=== PATIENT | male | born 1995 | race Two or more races ===

== ENCOUNTER 2021-02-14 17:56 | Emergency (ER) | payer SELFPAY ==
[~2021-02-14] VITALS: Ht 172.7 cm; Wt 86.2 kg
[2021-02-14 20:51] VITALS: BP 145/115
[2021-02-14] MEDS ORDERED: IBUPROFEN 800 MG TAB PO ONE (22:15)
== END 2021-02-14 22:26 | disposition home or self-care (01) ==
LOC: ER 17:58
DX: S02.5XXA Fracture of tooth (traumatic), initial encounter for closed fracture (principal); S05.11XA Contusion of eyeball and orbital tissues, right eye, initial encounter; Y08.89XA Assault by other specified means, initial encounter; Y93.89 Activity, other specified; Y92.89 Other specified places as the place of occurrence of the external cause; Y99.8 Other external cause status
CPT/HCPCS: 70486